=== PATIENT | male | born 1995 | race Caucasian/White ===

== ENCOUNTER 2021-04-11 02:50 | Emergency (ER) | payer OTHER ==
[2021-04-11] MEDS ORDERED: BACITRACIN15 GM TOP (06:03)
[2021-04-11] MEDS ORDERED: PERCOCET 5-3251 EACH PO (06:03)
[2021-04-11] MEDS ORDERED: IBUPROFEN800 MG PO (06:03)
[2021-04-11] MEDS ORDERED: CYCLOBENZAPRINE10 MG PO (06:03)
== END 2021-04-11 06:17 | disposition home or self-care (01) ==
LOC: FER 02:50
DX: S43.102A Unspecified dislocation of left acromioclavicular joint, initial encounter (principal); F17.210 Nicotine dependence, cigarettes, uncomplicated; G40.909 Epilepsy, unspecified, not intractable, without status epilepticus; Z79.899 Other long term (current) drug therapy; V27.4XXA Motorcycle driver injured in collision with fixed or stationary object in traffic accident, initial encounter; Y92.410 Unspecified street and highway as the place of occurrence of the external cause
CPT/HCPCS: 71046; 73000; 73030